=== PATIENT | female | born 1960 | race African-American/Black ===

== ENCOUNTER 2016-12-12 11:22 | Emergency (ER) | payer BC, OTHER ==
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
[2016-12-12] MEDS ORDERED: HYDROCODONE/ACETAMINOPHEN 5-325 MG 6 TAB/DSPK PO PRN (14:28)
[2016-12-12] MEDS ORDERED: HYDROCODONE/ACETAMINOPHEN 5-325 MG TABLET PO ONE (14:29)
[2016-12-12 15:08] VITALS: BP 135/69
== END 2016-12-12 15:08 | disposition home or self-care (01) ==
LOC: ER 11:22
DX: S80.01XA Contusion of right knee, initial encounter (principal); V49.40XA Driver injured in collision with unspecified motor vehicles in traffic accident, initial encounter; F17.200 Nicotine dependence, unspecified, uncomplicated; I10 Essential (primary) hypertension; Z88.0 Allergy status to penicillin
CPT/HCPCS: 99284